=== PATIENT | female | born 1985 | race Caucasian/White ===

== ENCOUNTER 2020-10-01 22:43 | Emergency (ER) | payer SELFPAY ==
[2020-10-01 23:19] VITALS: BP 153/97; PULSE 62; O2SAT 99
[2020-10-01] MEDS ORDERED: TORAdol 30 mg Injection IM ONE (23:19)
[2020-10-01] MEDS ORDERED: Augmentin 875-125 Tablet PO ONE (23:20)
--- NOTE | 2020-10-01 23:25 | ERPHSYRPT ---
- History of Present Illness Time Seen by Provider: 10/01/20 22:55 Source: patient Exam Limitations: no limitations Physician History: 34 years old female with multiple rotten teeth, periodontal disease presented in the ER with chief complaint of increasing pain right lower premolar and molar area with some gingival swelling for 1 week with progressive worsening. Reports sharp shooting moderate to severe intensity pain making it difficult to swallow and increased sensitivity to hot and cold intake. No fever or chills reported. Reports some swelling in the right lower jaw with pain radiation to right ear. Timing/Duration: gradual onset, weeks (1) Severity: moderate ENT Location: mouth, dental Prearrival Treatment: over the counter meds Associated Symptoms: ear pain (R), facial pain/swelling, jaw pain, tooth pain, No fever, No change in hearing Travel Risk - International Travel Have you traveled outside of the country in past 3 weeks: No - Coronavirus Screening Are you exhibiting any of the following symptoms?: No Close contact with a COVID-19 positive Pt in past 14-21 Days: No - Review of Systems Constitutional: No Symptoms Eyes: No Symptoms Ears, Nose, & Throat: Mouth Pain, Loose Teeth, Painful Swallowing Respiratory: No Symptoms Cardiac: No Symptoms Abdominal/Gastrointestinal: No Symptoms Musculoskeletal: No Symptoms Neurological: No Symptoms Hematologic/Lymphatic: No Symptoms Immunological/Allergic: No Symptoms - Nursing Vital Signs Nursing Vital Signs: Initial Vital Signs Temperature 98.1 F 10/01/20 23:15 Pulse Rate 62 10/01/20 23:15 Respiratory Rate 18 10/01/20 23:15 Blood Pressure 153/97 10/01/20 23:15 O2 Sat by Pulse Oximetry 99 10/01/20 23:15 Pain Scale Pain Intensity 4 - Physical Exam General Appearance: no apparent distress, alert Eye Exam: bilateral eye: normal inspection, PERRL, EOMI Ear Exam: bilateral ear: auricle normal, canal normal, TM normal Nasal Exam: normal inspection Throat Exam: normal, pharynx normal, dental tenderness (Multiple rotten tooth with periodontal disease, gingival swelling with minimal tenderness. No fluctuation.), moist mucus membranes Neck Exam: normal inspection, non-tender, supple, full range of motion Cardiovascular/Respiratory Exam: normal breath sounds, regular rate/rhythm Neurologic Exam: alert, oriented x 3 Skin Exam: normal color SpO2 Interpretation: normal SpO2: 99 O2 Delivery: Room Air - Progress Progress: pain not gone completely Progress Note: 10/01/20 23:23 She is given Toradol for symptomatic relief, started on Augmentin, recommended outpatient dental follow-up. 10/01/20 23:23 Counseled pt/family regarding: diagnosis, need for follow-up - Departure Departure Disposition: Home Clinical Impression: Dental infection Condition: Stable Critical Care Time: No Referrals: DOCTOR,NO FAMILY [Primary Care Provider] - [facility] [NON-STAFF Y W/O PRIVILEGES] - (Call tomorrow for appointment) Instructions: Tooth Abscess (DC), Dental Pain (DC) Additional Instructions: Take Tylenol/ibuprofen as needed for pain. Follow-up with dentist for reevaluation. Return to ER for increasing pain swelling, fever chills etc. Prescriptions: Ibuprofen 600 mg PO Q6HPRN PRN 10 Days #20 tablet PRN Reason: Pain Amoxicillin/Potassium Clav [Augmentin 875-125 Tablet] 875 mg PO BID 7 Days #14 tablet
[2020-10-01] MEDS ORDERED: TORAdol 30 mg Injection ONE (23:30)
[2020-10-01] MEDS ORDERED: Augmentin 875-125 Tablet ONE (23:30)
== END 2020-10-01 23:42 | disposition home or self-care (01) ==
LOC: ED 22:43
DX: K04.7 Periapical abscess without sinus (principal)
CPT/HCPCS: 96372; 99283; J1885; A9270-GY